=== PATIENT | female | born 1955 | race Caucasian/White ===

== ENCOUNTER → 2017-05-01 | Outpatient (CLI) | payer OTHER | LOC: CIMAGING 10:21 | PROVIDERS: ATTEND Obstetrics & Gynecology | DX: Z12.31 Encounter for screening mammogram for malignant neoplasm of breast (principal); Z80.3 Family history of malignant neoplasm of breast ==

== ENCOUNTER 2017-06-30 11:02 | Day surgery (SDC) | payer OTHER ==
[2017-06-30] MEDS ORDERED: LIDOCAINE 1% 300 MG/30 ML SDV SC ONE (11:05)
[2017-06-30 12:08] LABS: INR 2.52 (0.83-1.16); PROTIME(PATIENT) 27.1 SEC (12.0-15.0)
--- NOTE | 2017-06-30 12:20 | PDGENHP ---
History & Physical Chief Complaint: near syncope Relevant Physical Exam: s1s2 rrr cta ao 3 Cardiorespiratory Assessment: near syncope, plan LINQ implant.
[2017-06-30] MEDS ORDERED: LIDOCAINE 1% 300 MG/30 ML SDV ONE (12:21)
--- NOTE | 2017-06-30 17:16 | EPPROC ---
Electrophysiology Procedure Note: PROCEDURE PERFORMED: Implantation of [employer] LINQ Implantable Loop Recorder INDICATION: Near syncope PROCEDURE NOTE: L parasternal area was prepped and draped. Lidocaine plus bupivacaine was used for local anesthesia. Using provided insertion tool, LINQ device was placed along the 4th intercostal space. Appropriate dressing was applied. Serial Numbers: [employer] Reveal LINQ SB [id number] Programming: Patient Activated events 3 Auto Activated events 27 (Asystole 3s, HR <30 bpm, >180 bpm, >220bpm) Patient Problems: Problems Problem Status Onset CVA (cerebral infarction) Acute Hx of aortic valve replacement, mechanical Acute Near syncope Acute Hemiplegic migraine Chronic
== END 2017-06-30 11:15 | disposition home or self-care (01) ==
LOC: FCATH 11:02
PROVIDERS: ATTEND Internal Medicine Cardiovascular Disease
PROC: 0JH60PZ Insertion of Cardiac Rhythm Related Device into Chest Subcutaneous Tissue and Fascia, Open Approach (ICD-10-PCS; principal; 2017-06-30)
DX: R55 Syncope and collapse (principal); K21.9 Gastro-esophageal reflux disease without esophagitis; Z95.2 Presence of prosthetic heart valve; Z86.73 Personal history of transient ischemic attack (TIA), and cerebral infarction without residual deficits
CPT/HCPCS: C1764

== ENCOUNTER 2018-04-01 06:26 | Observation (INO) | payer OTHER ==
[2018-04-01] MEDS ORDERED: BACITRACIN IRRIGATION/NS 50,000 UNITS/1,000 ML BTL IRR ONE (06:30)
[2018-04-01] MEDS ORDERED: ceFAZolin 2 GM/DEXTROSE 100 ML IV ONE (06:30)
[2018-04-01] MEDS ORDERED: DIAZEPAM 5 MG TAB PO ONE (06:30)
[2018-04-01] MEDS ORDERED: diphenhydrAMINE 25 MG CAP PO ONE (06:30)
[2018-04-01] MEDS ORDERED: NS 1,000 ML IV ONE (06:30)
[2018-04-01 07:14] LABS: PLATELET COUNT 215 10^3/uL (150-400)
[2018-04-01] MEDS ORDERED: MIDAZOLAM 2 MG/2 ML VIAL IVP ONE (07:14)
[2018-04-01] MEDS ORDERED: LIDOCAINE 1% 300 MG/30 ML SDV ONE (07:16)
[2018-04-01] MEDS ORDERED: BUPIVACAINE 0.75% 10 ML SDV ONE (07:16)
[2018-04-01] MEDS ORDERED: IOPAMIDOL (ISOVUE-300) 100 ML BTL ONE (07:16)
[2018-04-01 07:22] LABS: INR 1.48 (0.83-1.16); PROTIME(PATIENT) 18.1 SEC (12.0-15.0)
[2018-04-01] MEDS ORDERED: MIDAZOLAM 2 MG/2 ML VIAL ONE (07:25)
[2018-04-01] MEDS ORDERED: fentaNYL 100 MCG/2 ML INJ ONE (07:27)
[2018-04-01] MEDS ORDERED: PROPOFOL/EMULSION 500 MG/50 ML BOTTLE IV ONE ×2 (07:27→08:48)
--- NOTE | 2018-04-01 07:33 | PDGENHP ---
History & Physical Chief Complaint: Presyncope, ventricular pauses History of Present Illness: History of presyncope with ventricular pauses up to 4 seconds noted on ILR Relevant Physical Exam: General: A&Ox4, no apparent distress. Respiratory: CTA. Cardiac: Regular rate and rhythm, S1, S2 Cardiorespiratory Assessment: Prior discussions regarding risks and benefits of dual-chamber PPM vs. single-chamber device. Proceed with implant of single chamber permanent pacemaker per patient preference and explant of ILR today.
[2018-04-01] MEDS ORDERED: NALOXONE HCL 0.4 MG/ML INJ IVP PRN (09:27)
--- NOTE | 2018-04-01 09:27 | POSTANESTH ---
Post Anesthetic Evaluation Cardiovascular Status: Normal, Stable Respiratory Status: Normal, Stable Level of Consciousness/Mental Status: Can Participate in Eval Pain Control: Adequate, Prn Tx Ordered Nausea/Vomiting Control: Adequate, Prn Tx Ordered Complications Possibly Related to Anesthesia: None Noted
--- NOTE | 2018-04-01 10:06 | EPPROC ---
Electrophysiology Procedure Note: PROCEDURE PERFORMED: 1. Implantation of an V Pacemaker 2. Subclavian vein angiography 3. Fluoroscopy 4. Explant LINQ monitor INDICATION: Presyncope 4 s pause on LINQ monitor PROCEDURE NOTE: Patient presented to the cardiac catheterization laboratory in a fasting, post absorptive state. Dr. Lemons nurse administered moderate sedation. The left and right infraclavicular area was prepped and draped in the usual sterile fashion. Lidocaine plus bupivacaine was used for local anesthesia. L subclavian venography revealed subclavian stenosis and tortuosity. Therefore we decided to place the device on the right side to reduce risk of subclavian occlusion and SVC syndrome. Also of note, the patient did not want an atrial lead at this time and understands that she may need an upgrade to dual chamber pacemaker in the future. R subclavian venography was performed by injection of iodinated contrast into the left antecubital vein. This was done to assure patency of the vein and also to assess for any anatomical aberrations. Using a combination of blunt and sharp dissection and electrocautery, the dissection was carried down to the prepectoral fascia. A pocket was made in this anatomical plane. All bleeding was controlled with electrocautery. The pocket was packed with gauze soaked in antibiotic solution. Fluoroscopy was utilized during the entire procedure for venous access and placement of the leads. Using a direct stick technique, the R extrathoracic axillary vein was accessed with 1 stick using the modified Seldinger technique. Placement of the guidewire into the venous system was confirmed by low-pressure blood return and also by visualizing the guide wire advancing into the inferior vena cava One #6 [place] sheath was advanced under fluoroscopic guidance over the guidewire. An active fixation ventricular lead was advanced into the right ventricular apex and screwed in place. The peel away sheath was removed. Pacing thresholds, sensing parameters and lead impedances were measured. There was no diaphragmatic stimulation at maximum output. The lead was sutured to the prepectoral fascia with 3 nonabsorbable sutures. The pocket was again inspected for any bleeding. The lead was attached to the pacemaker securely. The pacemaker was inserted into the pocket and secured in place with a nonabsorbable suture. Fluoroscopy was performed in RUELAS and MARTINIQUAIS planes to verify right-sided placement of the lead. Also fluoroscopy of the pacemaker pocket was performed. LINQ monitor was explanted in standard fashion, wound closed with 2 hodan. The pacemaker pocket was closed in 3 layers with absorbable monocryl sutures and hodan. Appropriate dressing was applied. The patient left the cardiac catheterization laboratory in stable condition. Serial Numbers: 1. Device: SJ Assurity MRI PM [id number] SN [id number] 2. Ventricular Lead: [facility] [id number] SN [id number] Stimulation Thresholds & Impedance Measurements: 1. Ventricular Lead 0.8V 0.5ms 0.8mA 753ohm R 18.3 mV Slava Pacing Parameters 1. Pacing mode: VVI 2. Lower rate: 40 ppm Patient Problems: Problems Problem Status Onset Near syncope Acute Hemiplegic migraine Chronic CVA (cerebral infarction) Acute Hx of aortic valve replacement, mechanical Acute
--- NOTE | 2018-04-01 14:04 | CPEKG ---
Test Reason : OPEN Blood Pressure : / mmHG Vent. Rate : 053 BPM Atrial Rate : 053 BPM P-R Int : 329 ms QRS Dur : 110 ms QT Int : 469 ms P-R-T Axes : 094 -30 054 degrees QTc Int : 441 ms Sinus rhythm Prolonged [place] interval Septal Q waves Confirmed by Manoj Holguin ([id number]) on 04/01/2018 2:04:10 PM Referred By: Confirmed By:Manoj Holguin
--- NOTE | 2018-04-01 14:07 | CPEKG ---
Test Reason : OPEN Blood Pressure : / mmHG Vent. Rate : 053 BPM Atrial Rate : 053 BPM P-R Int : 328 ms QRS Dur : 114 ms QT Int : 492 ms P-R-T Axes : 071 -17 075 degrees QTc Int : 462 ms Sinus rhythm Prolonged [place] interval LVH with secondary repolarization abnormality Septal Q waves Confirmed by Manoj Holguin ([id number]) on 04/01/2018 2:06:45 PM Referred By: Confirmed By:Manoj Holguin
[2018-04-02 04:38] LABS: PLATELET COUNT 186 10^3/uL (150-400)
[2018-04-02 07:22] VITALS: BP 130/77
[2018-04-02] MEDS: PANTOPRAZOLE SODIUM 40 MG TAB PO SCH ×2 (08:29→08:51)
[2018-04-02] MEDS ORDERED: ASPIRIN 81 MG CHEWABLE TAB PO SCH (09:00)
[2018-04-02] MEDS ORDERED: NEBIVOLOL HCL 5 MG TAB PO SCH (09:00)
[2018-04-02] MEDS ORDERED: WARFARIN SODIUM 5 MG TAB PO SCH (10:07)
--- NOTE | 2018-04-02 18:57 | GDS ---
SUPERVISING ACOUSTICAL MATERIAL WORKER: Dr. José Manuel Steel. ADMISSION DIAGNOSES: Ventricular pauses. DISCHARGE DIAGNOSES: Ventricular pauses status post placement of a single- chamber permanent pacemaker. HOSPITAL COURSE: The patient presented 04/01 for placement of a single-chamber permanent pacemaker in the setting of presyncope and multiple ventricular pauses noted on her implanted loop recorder. Prior to implant, Dr. Steel reviewed the risks and benefits of a dual-chamber versus single-chamber implant, and Ms. Shields identified a strong preference to proceed with a single lead device. Left subclavian venography demonstrated subclavian stenosis, and the decision was made to place the device on the right side to avoid SVC syndrome. She underwent pacemaker implant without complications and has done very well in the postprocedural period. Device interrogation this morning demonstrates normal device function. Chest x-ray this morning demonstrates appropriate anterior lead placement. She is appropriate and stable for discharge home this morning. PHYSICAL EXAMINATION: GENERAL: Alert and oriented x4. No apparent distress. VITAL SIGNS: Blood pressure 112/71, heart rate 62, SpO2 96% on room air. Temp 36.4. RESPIRATORY: Lungs are clear to auscultation without adventitious breath sounds. No rhonchi, wheezes, or rales. CARDIAC: Normal S1, S2. No S3, S4, or murmurs. Rhythm is regular. ABDOMEN: Normoactive bowel sounds times all 4 quadrants. No masses or tenderness. SKIN: Muir, warm, and dry without cyanosis , clubbing, or peripheral edema. Right pectoral incision with Tegaderm dressing in place that is clean, dry, and intact. No signs of hematoma or infection at the pectoral incision sight, no redness or ecchymosis around the pacemaker pocket. EXTREMITIES: Pulses 2+ bilaterally. No edema. Normal exam. LABORATORY STUDIES: Drawn today, CMP is stable. BMP is also stable. PROCEDURES: Pacemaker implant and chest x-ray as described above. Electrocardiogram this morning demonstrates stable prolonged AK interval, there are no new ST or T-wave abnormalities. DISCHARGE DISPOSITION: Patient will be discharged home in stable condition. She is under activity restrictions as below. DISCHARGE MEDICATIONS: Please see discharge medication reconciliation sheet for full details, please note that she has restarted her Coumadin and Bystolic at this time. DISCHARGE INSTRUCTIONS: Pacemaker implant instructions reviewed in detail with the patient. We discussed activity restrictions including no heavy lifting for 6 weeks and range of motion below the level of her shoulder during this same time frame. We also reviewed monitoring for signs and symptoms of infection. At the time of discharge, she verbalized understanding of all discharge instructions without questions or concerns. She has a followup visit scheduled with our device clinic in 1 week. She will have her 1 month followup visit in [place] as she will be spending the next several months there. She will contact our clinic for any new or concerning symptoms prior to her upcoming visit. Greater than 30 minutes spent on this discharge. /[id number]/MODL MTDD
[2018-04-03] MEDS ORDERED: WARFARIN SODIUM 5 MG TAB PO SCH (08:00)
--- NOTE | 2018-04-03 17:30 | CPEKG ---
Test Reason : OPEN Blood Pressure : / mmHG Vent. Rate : 058 BPM Atrial Rate : 058 BPM P-R Int : 334 ms QRS Dur : 124 ms QT Int : 435 ms P-R-T Axes : 000 -14 045 degrees QTc Int : 428 ms Sinus rhythm Prolonged [place] interval LBBB Confirmed by Manoj Holguin ([id number]) on 04/03/2018 5:30:05 PM Referred By: Confirmed By:Manoj Holguin
[2018-04-07] MEDS ORDERED: ALENDRONATE SODIUM 70 MG TAB PO SCH (07:00)
== END 2018-04-02 11:11 | disposition home or self-care (01) ==
LOC: FCATH 06:26 → F2W 09:27
PROVIDERS: ADMIT Internal Medicine Cardiovascular Disease; ATTEND Internal Medicine Cardiovascular Disease
PROC: 0JH604Z Insertion of Pacemaker, Single Chamber into Chest Subcutaneous Tissue and Fascia, Open Approach (ICD-10-PCS; principal; 2018-04-01)
PROC: 02HK3JZ Insertion of Pacemaker Lead into Right Ventricle, Percutaneous Approach (ICD-10-PCS; principal; 2018-04-01)
DX: I49.8 Other specified cardiac arrhythmias (principal)
CPT/HCPCS: 33207; 71045; 71046; 93005; G0378; C1786; C1898; J0690; J2250; J2704; J3010; Q9967

== ENCOUNTER → 2018-05-29 | Outpatient (CLI) | payer OTHER ==
--- NOTE | 2018-04-01 07:13 | PDANEPAE ---
ANE History of Present Illness 62 yo for pacemaker ANE Past Medical History - Cardiovascular History Hx Hypertension: No Hx Arrhythmias: Yes Hx Chest Pain: No Hx Coronary Artery / Peripheral Vascular Disease: No Hx CHF / Valvular Disease: Yes Hx Palpitations: Yes - Pulmonary History Hx COPD: No Hx Asthma/Reactive Airway Disease: No Hx Recent Upper Respiratory Infection: No Hx Oxygen in Use at Home: No Hx Sleep Apnea: No - Endocrine History Hx Diabetes: No - Chronic Pain History Chronic Pain: No ANE Review of Systems Review of systems is: negative Review of Systems: - Exercise capacity METS (RN): 5 METS ANE Patient History - Allergies Allergies/Adverse Reactions: No Known Allergies Allergy (Verified 03/26/18 10:53) - Home Medications Home medications: home medication list seen and reviewed Home Medications: Cholecalciferol Vit D3 [Vitamin D3 (*)] 1,000 units PO DAILY 09/17/13 [Last Taken 10/03/14] Multivitamins [Multivitamin (*)] 1 each PO DAILY 09/17/13 [Last Taken 10/03/14] Nebivolol HCl [Bystolic 5 mg (*)] 5 mg PO DAILY 09/17/13 [Last Taken 10/03/14] Warfarin Sodium [Coumadin 5MG (*)] 5 mg PO MWF 10/03/14 [Last Taken 09/29/14] Warfarin Sodium [Coumadin 5MG (*)] 7.5 mg PO SUTUTHSA 10/03/14 [Last Taken 10/01] Alendronate Sodium [Fosamax 70 MG (*)] 70 mg PO TU@0700 03/26/18 [Last Taken Unknown] Calcium Carbonate [Oyster Shell Calcium 500 mg (*)] 500 mg PO DAILY 03/26/18 [ Last Taken Unknown] Esomeprazole Magnesium [Nexium] 20 mg PO DAILY 03/26/18 [Last Taken Unknown] - NPO status NPO Status: no food or drink >8 hours - Smoking Hx Smoking Status: Never smoked ANE Physical Exam - Airway Neck exam: FROM Mallampati Score: Class 2 Mouth exam: normal dental/mouth exam - Pulmonary Pulmonary: no respiratory distress - Cardiovascular Cardiovascular: regular rate and rhythym - ASA Status ASA Status: II ANE Anesthesia Plan Anesthesia Plan: MAC
== END ==
LOC: CIMAGING 09:34
PROVIDERS: ATTEND Obstetrics & Gynecology
DX: Z12.31 Encounter for screening mammogram for malignant neoplasm of breast (principal); R92.8 Other abnormal and inconclusive findings on diagnostic imaging of breast; Z80.3 Family history of malignant neoplasm of breast

== ENCOUNTER → 2018-06-04 | Outpatient (CLI) | payer OTHER | LOC: BRMIMAGING 09:58 | PROVIDERS: ATTEND Obstetrics & Gynecology | DX: R92.2 Inconclusive mammogram (principal) ==

== ENCOUNTER 2018-07-17 07:12 | Emergency (ER) | payer OTHER ==
--- NOTE | 2018-07-17 07:37 | EDPHY ---
H & P Stated Complaint: Leg weakness, knees buckled this am, irregular HR noted at 6.20 Time Seen by Provider: 07/17/18 07:36 - Personal History Current Tetanus Diphtheria and Acellular Pertussis (TDAP): Yes Tetanus Vaccine Date: < 10 years - Medical/Surgical History Hx Asthma: No Hx Chronic Respiratory Disease: No Hx Diabetes: No Hx Cardiac Disease: Yes Hx Renal Disease: No Hx Cirrhosis: No Hx Alcoholism: No Hx HIV/AIDS: No Hx Splenectomy or Spleen Trauma: No Other PMH: artificial aortic valve '99, link recorder. Pacemaker - Mar 2018. - Social History Smoking Status: Never smoked Constitutional: Initial Vital Signs Temperature (C) 36.9 C 07/17/18 07:15 Heart Rate 59 L 07/17/18 07:15 Respiratory Rate 16 07/17/18 07:15 Blood Pressure 149/80 H 07/17/18 07:15 O2 Sat (%) 98 07/17/18 07:15 O2 Delivery Mode Room Air Allergies/Adverse Reactions: No Known Allergies Allergy (Verified 03/26/18 10:53) Home Medications: Medication Instructions Recorded Cholecalciferol Vit D3 [Vitamin D3 1,000 units PO DAILY 09/17/13 (*)] Multivitamins [Multivitamin (*)] 1 each PO DAILY 09/17/13 Nebivolol HCl [Bystolic 5 mg (*)] 5 mg PO DAILY 09/17/13 Warfarin Sodium [Coumadin 5MG (*)] 5 mg PO MWF 10/03/14 Warfarin Sodium [Coumadin 5MG (*)] 7.5 mg PO SUTUTHSA 10/03/14 Aspirin [Aspirin 81mg (*)] 81 mg PO DAILY #30 tab 10/05/14 Alendronate Sodium [Fosamax 70 MG 70 mg PO TU@0700 03/26/18 (*)] Calcium Carbonate [Oyster Shell 500 mg PO DAILY 03/26/18 Calcium 500 mg (*)] Esomeprazole Magnesium [Nexium] 40 mg PO DAILY 03/26/18 Medical Decision Making ED Course/Re-evaluation: CHIEF COMPLAINT: Weakness HISTORY OF PRESENT ILLNESS: The patient is an anticoagulated (Coumadin) 62 y/o female with a history of a [employer] pacemaker (March 2018),TIA's, and an aortic valve replacement complaining of weakness this morning. The pacemaker was placed by Dr. Steel for dysrhythmias after an aortic valve replacement. Since the pacemaker was placed she has had one episode of tachycardia. This morning at 6:15am, 1 hour ago, the patient was standing at the counter making breakfast when her knees buckled and she couldn't stand. She fell to her knees and started crawling although she felt "strange and was not sure how far she could crawl". She was able to move her hips and arms while crawling but felt generally weak and lightheaded. She denies feeling lightheaded prior to onset of symptoms. Around 5 minutes after her knees buckled she felt "flip flopping" of her heart. All of her symptoms resolved within 10 minutes of onset. She initially thought hat these symptoms felt more neurogenic than cardiac as they reminded her of prior "small strokes" . Due to these symptoms she decided to present to the emergency department. No fever, headache, body aches, chest pain, shortness of breath, cough, abdominal pain, urinary or bowel complaints, numbness. REVIEW OF SYSTEMS: A comprehensive 10 system review of systems is otherwise negative aside from elements mentioned in the history of present illness and medical decision making. PHYSICAL EXAM: HR, BP, O2 Sat, RR. Temp noted General Appearance: Alert, well hydrated, appropriate, and non-toxic appearing. Head: Atraumatic without scalp tenderness or obvious injury Eyes: Pupils equal, round, reactive to light and accommodation, EOMI, no trauma , no injection. Ears: Clear bilaterally, no perforation, normal landmarks Nose: Atraumatic, no rhinorrhea, clear. Throat: There is no erythema or exudates, no lesions, normal tonsils, mucus membranes moist. Neck: Supple, 2+ carotid upstroke, nontender, no lymphadenopathy. Respiratory: No retractions, no distress, no wheezes, and no accessory muscle use. Lungs are clear to auscultation bilaterally. Cardiovascular: Artificial aortic valve noted. Regular rate and rhythm, no murmurs, rubs, or gallops. Bilateral carotid, radial, dorsalis pedis, and posterior tibial pulses intact. Good capillary refill all extremities. Gastrointestinal: Abdomen is soft, nontender, non-distended, no masses, no rebound, no guarding, no peritoneal signs. Musculoskeletal: Normal active ROM of all extremities, atraumatic. Neurological: Alert, appropriate, and interactive. The patient has normal DTRs and non-focal cranial nerves, motor, sensory, and cerebellar exam. Skin: No rashes, good turgor, no nodules on palpation. Past medical history: "small strokes" while on hormone replacement therapy Past surgical history: Artificial aortic valve ', Pacemaker - Mar 2018. Family history: Denies Social history: at bedside, lives in [place], employed DIAGNOSTICS/PROCEDURES/CRITICAL CARE TIME: EKG: The 12 lead EKG was interpreted by myself as sinus with a rate of 52, poor R wave progression, Q's in the precordial leads, normal intervals, no pacer spikes. See hard copy and/or "tracemaster" electronic copy for interpretation. DIFFERENTIAL DIAGNOSIS: The differential diagnosis for the patient's neurologic deficits included but was not limited to peripheral causes, central causes including CVA, TIA, electrolyte abnormalities and dehydration, cardiogenic causes, atypical causes like migraine syndrome. MEDICAL DECISION MAKING: The patient is an anticoagulated (Coumadin) 62 y/o female with a history of a [employer] pacemaker (March 2018), TIA's, and an aortic valve replacement presenting with weakness this morning. The pacemaker was placed by Dr. Steel for dysrhythmias after an aortic valve replacement. This morning at 6:15am, 1 hour ago, the patient was standing at the counter making breakfast when her knees buckled and she couldn't stand. Around 5 minutes after her knees buckled she felt "flip flopping" of her heart. All of her symptoms resolved within 10 minutes of onset. On exam I can hear the artificial aortic valve, but she otherwise has a normal exam. We will need to interrogate her pacemaker. Labs and EKG ordered. 0804:I interpreted patient's EKG as sinus with a rate of 52, poor R wave progression, Q's in the precordial leads, normal intervals, no pacer spikes. Patient's pacemaker is still being interrogated. 0845: Reassessed patient and discussed normal labs and EKG findings. I have also updated her on the pacemaker interrogation. 0858: I consulted with Misael, the pacemaker rep, regarding this patient. The pacemaker interrogation is normal around the time of her onset of symptoms. 0945: Reassessed patient and discussed pacemaker interrogation. Additional labs ordered. 1010: Reassessed patient and discussed additional lab findings. I have offered her additional imaging, which she has politely declined. Patient had transient weakness of unknown etiology. I have advised her to present to her PCP for follow up. Return precautions; patient is comfortable with this plan. - Data Points Laboratory Results: Laboratory Results 07/17/18 07:57 07/17/18 07:57 07/17/18 07/17/18 07/17/18 08:00 07:57 07:57 WBC RBC Hgb Hct MCV MCH MCHC RDW Plt Count MPV Neut % (Auto) Lymph % (Auto) Daggett % (Auto) Eos % (Auto) Baso % (Auto) Nucleat RBC Rel Count Absolute Neuts (auto) Absolute Lymphs (auto) Absolute Monos (auto) Absolute Eos (auto) Absolute Basos (auto) Absolute Nucleated RBC Immature Gran % Immature Gran # PT 25.5 SEC H SEC (12.0-15.0) INR 2.47 H (0.83-1.16) Sodium 136 mEq/L mEq/L (135-145) Potassium 4.5 mEq/L mEq/L (3.5-5.2) Chloride 103 mEq/L mEq/L (97-110) Carbon Dioxide 27 mEq/l mEq/l (22-31) Anion Gap 6 mEq/L mEq/L (6-14) BUN 16 mg/dL mg/dL (7-23) Creatinine 0.7 mg/dL mg/dL (0.6-1.0) Estimated GFR > 60 Glucose 81 mg/dL mg/dL (70-100) Calcium 9.1 mg/dL mg/dL (8.5-10.4) Magnesium 1.9 mg/dL mg/dL (1.6-2.3) POC Troponin I 0.01 ng/mL ng/mL (0.00-0.08) 07/17/18 07:57 WBC 5.63 10^3/uL 10^3/uL (3.80-9.50) RBC 4.35 10^6/uL 10^6/uL (4.18-5.33) Hgb 12.3 g/dL L g/dL (12.6-16.3) Hct 37.1 % L % (38.0-47.0) MCV 85.3 fL fL (81.5-99.8) MCH 28.3 pg pg (27.9-34.1) MCHC 33.2 g/dL g/dL (32.4-36.7) RDW 15.0 % % (11.5-15.2) Plt Count 199 10^3/uL 10^3/uL (150-400) MPV 10.4 fL fL (8.7-11.7) Neut % (Auto) 68.6 % % (39.3-74.2) Lymph % (Auto) 20.8 % % (15.0-45.0) Daggett % (Auto) 8.2 % % (4.5-13.0) Eos % (Auto) 1.6 % % (0.6-7.6) Baso % (Auto) 0.4 % % (0.3-1.7) Nucleat RBC Rel Count 0.0 % % (0.0-0.2) Absolute Neuts (auto) 3.87 10^3/uL 10^3/uL (1.70-6.50) Absolute Lymphs (auto) 1.17 10^3/uL 10^3/uL (1.00-3.00) Absolute Monos (auto) 0.46 10^3/uL 10^3/uL (0.30-0.80) Absolute Eos (auto) 0.09 10^3/uL 10^3/uL (0.03-0.40) Absolute Basos (auto) 0.02 10^3/uL 10^3/uL (0.02-0.10) Absolute Nucleated RBC 0.00 10^3/uL 10^3/uL (0-0.01) Immature Gran % 0.4 % % (0.0-1.1) Immature Gran # 0.02 10^3/uL 10^3/uL (0.00-0.10) PT INR Sodium Potassium Chloride Carbon Dioxide Anion Gap BUN Creatinine Estimated GFR Glucose Calcium Magnesium POC Troponin I Point of Care Test Results: Chemistry 07/17/18 08:00 POC Troponin I 0.01 ng/mL ng/mL (0.00-0.08) Departure - Departure Disposition: Home, Routine, Self-Care Clinical Impression: Weakness, Transient weakness of lower extremity Condition: Good Instructions: Weakness (ED) Additional Instructions: 1. Follow-up with your primary doctor within 72 hours. 2. Return to the Emergency Department for fever, chest pain, shortness of breath , increasing pain or other worsening of condition. Referrals: Patrick Luna MD [Primary Care Provider] - As per Instructions José Manuel Steel MD [Medical Doctor] - As per Instructions Report Scribed for: Sarthak South Report Scribed by: Regla Tse Date of Report: 07/17/18 Time of Report: 07:38
[2018-07-17 08:07] LABS: PLATELET COUNT 199 10^3/uL (150-400)
[2018-07-17 10:06] LABS: INR 2.47 (0.83-1.16); PROTIME(PATIENT) 25.5 SEC (12.0-15.0)
[2018-07-17 10:20] VITALS: BP 118/76
--- NOTE | 2018-07-17 11:12 | PDCONSULT ---
Crown Perforator Operator Note: BRIEF ELECTROPHYSIOLOGY CONSULTATION I was asked to evaluate Ms. Shields in the Emergency Department after she presented this morning with an episode of severe fatigue and near-syncope. She is followed in the Cardiology Clinic for history of bicuspid aortic valve status post mechanical aortic valve replacement remotely; first-degree AV block ; atrial tachycardia; sick sinus syndrome with spontaneous sinus pauses associated with near syncope, now status post implantation of a single-chamber pacemaker in 03/2018. This morning she presented to the ED following an episode of severe fatigue and a "funny sensation in my head", which she describes as a severe lightheadedness but not overt syncope. She states that she collapsed to her knees and had to "crawl on all fours" for several seconds, before regaining her strength and being able to stand back up. She denies any associated chest pain or pressure, palpitations, or neurologic localizing deficits. She does state that she felt out of breath, but is not sure whether this had to do with the additional effort it took for her to exert herself at the time. She has undergone evaluation with electrocardiography (sinus rhythm, first- degree AV block, anterior infarction pattern which is present on multiple prior tracings), labs (mildly anemic, normal chemistries, negative troponin, INR 2.47 which is slightly below her goal range of 2.5-3.5), and interrogation of her pacemaker (normal system function, less than 1% historical pacing burden, no arrhythmic detections). She states that she had echocardiography performed in [place] a month ago, and this showed normally functioning aortic valve prosthesis. On physical examination, she is in no acute distress; there is no carotid bruit or JVD; she is in regular rhythm and normal rate; there is a crisp mechanical aortic valve click; lungs clear to auscultation bilaterally; no focal deficits on neurologic exam. On balance, I do not see any evidence of acute cardiac disease. She is not manifesting ischemia/tachyarrhythmia/significant yohana arrhythmias/pacemaker dysfunction. Her INR is slightly below her therapeutic range, and she does have a history of TIAs related to her mechanical aortic valve; thus I wonder if we may be dealing with a neurologic event. Her pacemaker is MRI conditional, and is greater than 6 weeks from implant, and thus MRI of the brain is available to us as a diagnostic modality if we choose to pursue this. I've discussed this case with Ms Shields, her (Dr Shields, present at the bedside), and her primary miniature set builder (Dr Steel).
--- NOTE | 2018-07-17 12:17 | CPEKG ---
Test Reason : OPEN Blood Pressure : / mmHG Vent. Rate : 052 BPM Atrial Rate : 051 BPM P-R Int : 328 ms QRS Dur : 116 ms QT Int : 443 ms P-R-T Axes : 094 -23 058 degrees QTc Int : 412 ms Sinus rhythm Prolonged AL interval Probable left atrial enlargement Nonspecific intraventricular conduction delay Anterior infarct, old Confirmed by Sarthak South ([id number]) on 07/17/2018 12:16:59 PM Referred By: Sarthak South Confirmed By:Sarthak South
== END 2018-07-17 10:22 | disposition home or self-care (01) ==
DX: R53.1 Weakness (principal); Z95.0 Presence of cardiac pacemaker; Z95.2 Presence of prosthetic heart valve
CPT/HCPCS: 84484-ER